=== PATIENT | female | born 1995 | race Hispanic/Latino ===

== ENCOUNTER 2018-08-24 23:22 | Emergency (ER) | payer BC ==
[2018-08-24] MEDS ORDERED: Lidocaine 1% w/Epinephrine 1:100K 20 ML VIAL ONE (23:43)
[2018-08-24] MEDS ORDERED: Adacel (T-DAP) 0.5 ML VIAL ONE (23:43)
--- NOTE | 2018-08-24 23:56 | RAD ---
THREE VIEW RIGHT FOOT: 08/24/18 CLINICAL HISTORY: Pain, soft tissue injury. FINDINGS: No fracture Lisfranc joint is maintained. No radiopaque foreign body is visualized. There is soft tis ray prominence. IMPRESSION: No acute osseous abnormality of the right foot. No radiopaque foreign body is seen. POS: [facility]
== END 2018-08-25 00:45 | disposition home or self-care (01) ==
LOC: ERS 23:22
DX: S90.851A Superficial foreign body, right foot, initial encounter (principal); F41.9 Anxiety disorder, unspecified; F32.9 Major depressive disorder, single episode, unspecified; Z23 Encounter for immunization; W25.XXXA Contact with sharp glass, initial encounter; Y92.039 Unspecified place in apartment as the place of occurrence of the external cause
CPT/HCPCS: 28190; 90471; 90715; J2001